=== PATIENT | female | born 1965 | race Caucasian/White ===

== ENCOUNTER 2020-03-21 08:50 | Day surgery (SDC) | payer BC, OTHER ==
[~2020-03-21] VITALS: Ht 170.2 cm; Wt 70.1 kg
[~2020-03-21 08:50] MED LIST: NORCOELIX PO
[2020-03-21 09:13] VITALS: BP 141/65; PULSE 74; TEMP 98.3
[2020-03-21 11:17] VITALS: BP 125/54; PULSE 64; TEMP 98.2
--- NOTE | 2020-03-21 11:17 | NUR ---
PATIENT TRANSPORTED PER CART FROM GI SUITE ACCOMPANIED BY ENDO RN. CHAIR WAS MOVED CLOSER TO CART FOR PATIENT TRANSFER. PATIENT TRANSFERRED WITHOUT PROBLEMS. MONITORS APPLIED. VSS ON ROOM AIR. VERBAL REPORT RECIEVED.
[2020-03-21 11:30] VITALS: BP 124/71; PULSE 65
--- NOTE | 2020-03-21 11:30 | NUR ---
VSS ON ROOM AIR. PATIENT DENIES DISCOMFORT AND NAUSEA. PATIENT GIVEN SPRITE AND MUFFIN. DRINKS WITHOUT PROBLEMS. AT BEDSIDE. WARM BLANKET PROVIDED.
[2020-03-21 11:45] VITALS: BP 111/74; PULSE 57
--- NOTE | 2020-03-21 11:50 | NUR ---
VSS ON ROOM AIR. PATIENT EATS ALL OF MUFFIN AND DRINKS WITHOUT PROBLEMS.
[2020-03-21 12:00] VITALS: BP 116/67; PULSE 58
--- NOTE | 2020-03-21 12:00 | NUR ---
VSS ON ROOM AIR. IV SITE DC'D WITH CATHETER TIP INTACT. PRESSURE AND BANDAGE APPLIED. DISCHARGE INSTRUCTIONS GIVEN VERBAL AND DISCHARGE PACKET PROVIDED TO PATIENT. QUESTIONS ANSWERED AND PATIENT AND VOICED UNDERSTANDING. PATIENT CHANGES INTO STREET CLOTHES. 1209 DISCHARGED PER WHEEL CHAIR ACCOMPANIED BY AMB RN TO PRIVATE VECHILE DRIVEN BY .
[2020-03-21 14:28] VITALS: BP 125/54; PULSE 64
== END 2020-03-21 12:09 | disposition home or self-care (01) ==
LOC: SDCO 08:50
DX: K59.00 Constipation, unspecified (principal); G60.0 Hereditary motor and sensory neuropathy; G70.9 Myoneural disorder, unspecified; Z88.1 Allergy status to other antibiotic agents; Z88.5 Allergy status to narcotic agent; Z20.822 Contact with and (suspected) exposure to COVID-19
CPT/HCPCS: J2704; J7030